=== PATIENT | female | born 1965 | race Caucasian/White ===

== ENCOUNTER → 2018-07-24 | Outpatient (CLI) | payer OTHER ==
[~2018-07-24] MED LIST: ALDACTONE100 MG PO; ARMOUR THYROID15 M1 PO; COZAAR 50 MG TA50 M2 PO; DEPLIN-ALGAL O1 EAC1 PO; ESTRACE1 MG PO; ESTRADIOL 1 MG T1 M1 PO; HALCION0.25 MG PO; MIRAPEX 0.250.25 M1 PO; PROAIR HFA8.5 GM; SINGULAIR 10 MG10 M1 PO; TOPROL XL50 MG PO; VALIUM5 MG PO; VIIBRYD20 MG PO; VITAMIN D1000 UNI1 PO; XANAX 0.5 MG0.5 MG PO; ZOVIRAX400 MG PO
== END ==
LOC: CAT 14:12
DX: Z13.6 Encounter for screening for cardiovascular disorders (principal); E78.00 Pure hypercholesterolemia, unspecified; I25.10 Atherosclerotic heart disease of native coronary artery without angina pectoris

== ENCOUNTER 2019-02-24 12:18 | Emergency (ER) | payer BC, OTHER ==
[~2019-02-24] VITALS: Ht 167.6 cm; Wt 77.1 kg
[2019-02-24 12:57] LABS: ABSOLUTE NEUTROPHILS 7.4 thou/uL (1.4-8.2); BASOPHILS 0.9 % (0.0-2.0); EOSINOPHILS 1.4 % (0.0-3.0); HEMATOCRIT 37.8 % (37.0-47.0); HEMOGLOBIN 12.8 gm/dL (12.0-15.0); MCHC 33.9 g/dL (28.0-37.0); MCV 97.6 fL (80.0-100.0); MONOCYTES 7.7 % (1.0-8.0); PLATELET COUNT 299 thou/uL (150-400); RBC 3.88 mil/uL (4.20-5.00); RDW 13.4 % (10.5-14.5); WBC 11.1 thou/uL (4.0-11.0)
[2019-02-24 13:18] LABS: APTT 27.3 Seconds (24.5-32.8); PROTIME 9.5 Seconds (9.3-11.4)
[2019-02-24 13:20] LABS: ANION GAP 11 mmol/L (7-16); BUN 6 mg/dL (7-18); CALCIUM 9.6 mg/dL (8.5-10.1); CHLORIDE 101 mmol/L (98-107); CO2 24 mmol/L (21-32); CREATININE 0.7 mg/dL (0.6-1.0); GLUCOSE 116 mg/dL (74-106); POTASSIUM 3.5 mmol/L (3.5-5.1); SODIUM 136 mmol/L (136-145)
[2019-02-24 13:31] LABS: ALBUMIN 3.2 g/dL (3.4-5.0); SGOT 22 U/L (15-37); SGPT 23 U/L (30-65); TOTAL BILIRUBIN 0.7 mg/dL (<0.1-1.0); TOTAL PROTEIN 7.3 g/dL (6.4-8.2); TROPONIN-I <0.06 ng/mL (<0.06)
[2019-02-24] MEDS ORDERED: VALIUM5 MG PO (17:08)
[2019-02-24] MEDS ORDERED: ZOFRAN4 MG PO (17:28)
[2019-02-24 17:58] VITALS: BP 124/68
--- NOTE | 2019-02-25 13:16 | EKG ---
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 [employer]: [place] : 1965 Requested By: Alex Barillas Order Number: [id number] MD: Huber English Measurements Intervals [place] Rate: 106 P: 46 WI: 168 QRS: 20 QRSD: 96 T: 23 QT: 352 QTc: 468 Interpretive Statements Sinus tachycardia Poor R wave progression Compared to ECG 10/04/2014 16:13:06 Low QRS voltage now present Electronically Signed On 02-25-2019 13:15:50 [employer]IOLOGY TEACH[employer] by Huber English [email or web address] <ELECTRONICALLY SIGNED> By: Huber English MD, [facility] 02/25/19 1315 1302 1302 Huber English MD, FACC /EPI
== END 2019-02-24 17:45 | disposition home or self-care (01) ==
LOC: ER 12:18
PROVIDERS: Emergency Medicine
DX: R42 Dizziness and giddiness (principal); I10 Essential (primary) hypertension; J45.909 Unspecified asthma, uncomplicated

== ENCOUNTER → 2019-03-30 | Outpatient (CLI) | payer BC, OTHER ==
[~2019-03-30] MED LIST changes: +ZOFRAN4 MG PO
--- NOTE | 2019-03-30 15:26 | 2DMMODE ---
[facility] [place] [address] 2 D/M-MODE ECHOCARDIOGRAM Name: TERRI ROTH ROHIT Room #: REG [facility]#: [id number] Admission: 03/30/19 Attend Phys: Triston Chris, Discharge: Date of : 63 Report #: [id number] THIS REPORT FOR: //name// APPROVED REPORT Study performed: 03/30/2019 14:07:27 EXAM: Comprehensive 2D, Doppler, and color-flow Echocardiogram Patient Location: Out-Patient Room #: Echo lab 2 Status: routine BSA: 2.00 HR: 90 bpm BP: 126/76 mmHg Rhythm: NSR Other Information Study Quality: Good Indications CVA/TIA Echo Enhancing Agent Indication: Rule out Shunt Agent(s) / Amount(s) Used: Agitated Saline 7 cc 2D Dimensions RVDd: 33.40 mm IVSd: 7.97 (7-11mm) LVOT Diam: 19.95 (18-24mm) LVDd: 39.99 mm PWd: 9.36 (7-11mm) Ascending Ao: 28.30 (22-36mm) LVDs: 27.60 (25-40mm) Aortic Root: 30.56 mm IVC: 17.00 mm Volumes Left Atrial Volume (Systole) Single Plane 4CH: 30.10 mL Single Plane 2CH: 28.78 mL LA ESV Index: 16.00 mL/m2 Aortic Valve AoV Peak Sascha.: 1.33 m/s AO Peak Gr.: 7.03 mmHg LVOT Max P.82 mmHg LVOT Max V: 1.21 m/s LUIZA Vmax: 2.84 cm2 [facility] [address] [place] [address] 2 D/M-MODE ECHOCARDIOGRAM Name: TERRI ROTH Room #: REG [facility]#: [id number] Admission: 03/30/19 Attend Phys: Triston Chris, Discharge: Date of : 63 Report #: [id number] Mitral Valve E/A Ratio: 0.9 MV Decel. Time: 207.80 ms MV E Max Sascha.: 1.03 m/s MV A Sascha.: 1.20 m/s MV PHT: 60.26 ms IVRT: 114.19 ms Pulmonary Valve PV Peak Sascha.: 1.35 m/s PV Peak Gr.: 7.31 mmHg Pulmonary Vein P Vein S: 0.61 m/s P Vein A: 0.38 m/s P Vein D: 0.47 m/s P Vein A Dur.: 90.0 msec P Vein S/D Ratio: 1.30 Left Ventricle The left ventricle is normal size. There is normal LV segmental wall motion. There is normal left ventricular wall thickness. Left ventricular systolic function is normal. The left ventricular ejection fraction is within the normal range. LVEF is 55-60%. Grade I - abnormal relaxation pattern. Right Ventricle The right ventricle is normal size. The right ventricular systolic function is normal. Atria The left atrium size is normal. Interatrial septum is intact without evidence of ASD or PFO. The right atrium size is normal. Aortic Valve The aortic valve is normal in structure. Trace aortic regurgitation. There is no aortic valvular stenosis. Mitral Valve The mitral valve is normal in structure. There is no mitral valve regurgitation noted. No evidence of mitral valve stenosis. Tricuspid Valve The tricuspid valve is normal in structure. There is no tricuspid valve regurgitation noted. Pulmonic Valve The pulmonary valve is normal in structure. There is no pulmonic valvular regurgitation. [address] [address] 2 D/M-MODE ECHOCARDIOGRAM Name: TERRI ROTH ROHIT Room #: REG [facility]#: [id number] Admission: 03/30/19 Attend Phys: Triston Chris, Discharge: Date of : 63 Report #: [id number] Great Vessels The aortic root is normal in size. IVC is normal in size and collapses >50% with inspiration. Pericardium There is no pericardial effusion. <Conclusion> The left ventricle is normal size. LVEF is 55-60%. The aortic valve is normal in structure. Trace aortic regurgitation. The mitral valve is normal in structure. The tricuspid valve is normal in structure. There is no pericardial effusion. <ELECTRONICALLY SIGNED> By: Syed Hicks MD 03/30/19 1525 1525 1525 Syed Hicks MD /INF
== END ==
LOC: CV 12:23 → MRI 18:47 → CV 18:48
DX: I67.82 Cerebral ischemia (principal); G45.9 Transient cerebral ischemic attack, unspecified

== ENCOUNTER → 2019-06-25 | Outpatient (CLI) | payer BC, OTHER | LOC: ULTRA 14:17 | DX: I82.492 Acute embolism and thrombosis of other specified deep vein of left lower extremity (principal) ==

== ENCOUNTER → 2019-07-09 | Outpatient (CLI) | payer BC, OTHER | LOC: ULTRA 10:36 | DX: M79.605 Pain in left leg (principal) ==

== ENCOUNTER → 2019-08-13 | Outpatient (CLI) | payer BC | LOC: RAD 08:39 → ULTRA 11:16 | DX: I80.02 Phlebitis and thrombophlebitis of superficial vessels of left lower extremity (principal) ==

== ENCOUNTER → 2020-01-04 | Outpatient (CLI) | payer OTHER, BC | LOC: MRI 10:08 | PROVIDERS: ATTEND Family Medicine | DX: G45.9 Transient cerebral ischemic attack, unspecified (principal); R90.82 White matter disease, unspecified; H83.8X3 Other specified diseases of inner ear, bilateral ==

== ENCOUNTER → 2020-09-09 | Outpatient (CLI) | payer OTHER, BC | LOC: MRI 10:02 | PROVIDERS: ATTEND Family Medicine | DX: R25.1 Tremor, unspecified (principal); R53.1 Weakness ==

== ENCOUNTER → 2021-04-27 | Outpatient (CLI) | payer OTHER, BC | LOC: ULTRA 10:25 | PROVIDERS: ATTEND Family Medicine | DX: R74.01 Elevation of levels of liver transaminase levels (principal); E78.00 Pure hypercholesterolemia, unspecified ==

== ENCOUNTER → 2021-04-27 | Outpatient (CLI) | payer OTHER | LOC: CAT 10:23 | PROVIDERS: ATTEND Family Medicine | DX: Z13.6 Encounter for screening for cardiovascular disorders (principal); E78.00 Pure hypercholesterolemia, unspecified; I25.10 Atherosclerotic heart disease of native coronary artery without angina pectoris ==